=== PATIENT | female | born 1960 | race Caucasian/White ===

== ENCOUNTER 2019-12-19 10:45 | Outpatient (CLI) | payer OTHER ==
[2013-08-25 11:23] VITALS: BMI 25.1
[~2019-12-19 10:45] MED LIST: BIOTIN5 MG PO; IBUPROFEN400 MG PO; LORTAB 5/500 TA1 TA2 PO; MULTI-DAY VITAM1 TAB PO
== END 2019-12-19 16:00 | disposition home or self-care (01) ==
LOC: D.MAMMO 10:45
PROVIDERS: ATTEND Nurse Practitioner Family
DX: Z12.31 Encounter for screening mammogram for malignant neoplasm of breast (principal)